=== PATIENT | male | born 1940 | race African-American/Black ===

== ENCOUNTER 2017-04-19 11:13 | Emergency (ER) | payer MEDICARE ==
[2017-04-19 11:47] LABS: #Basophils 0.1 thou/uL (0.0-0.2); #Eosinphils 0.2 thou/uL (0.0-0.7); #Lymphocytes 2.1 thou/uL (1.20-3.40); #Monocytes 0.4 thou/uL (0.11-0.59); #Neutrophils 2.8 thou/uL (1.40-6.50); %Eosinophils 3.5 % (0.0-10.0); %Lymphocytes 37.7 % (21.0-51.0); %Monocytes 7.8 % (0.0-10.0); Hemoglobin 13.3 g/dL (14.0-18.0); Mean Corpuscular HGB CONC 34.1 g/dL (32.0-36.0); Mean Corpuscular Hemoglobin 28.3 pg (27.0-31.0); Mean Corpuscular Volume 83.1 fl (80.0-94.0); Mean Platelet Volume 6.2 fL (7.4-10.4); Platelet Count 428 thou/uL (130-400); RBC Distribution Width 15.3 % (11.5-14.5); Red Blood Cell (RBC) Count 4.68 mill/uL (4.70-6.10); White Blood Cell (WBC) Count 5.6 thou/uL (4.8-10.8)
[2017-04-19 12:01] LABS: ALT (SGPT) 8 U/L (8-55); AST (SGOT) 13 U/L (5-34); Albumin 3.9 g/dL (3.4-4.8); Alkaline Phosphatase 61 U/L (40-150); Anion Gap 14 mmol/L (10-20); BUN (Urea Nitrogen) 21 mg/dL (8.4-25.7); Bilirubin, Total 0.3 mg/dL (0.2-1.2); Calc. Creatinine Clearance 0 mL/min (70-130); Calcium 8.7 mg/dL (7.8-10.44); Carbon Dioxide 17 mmol/L (23-31); Chloride 108 mmol/L (98-107); Estimated GFR-MDRD 71; Globulin 3.9 g/dL (2.4-3.5); Glucose 148 mg/dL (83-110); Potassium 4.1 mmol/L (3.5-5.1); Protein, Total 7.8 g/dL (5.8-8.1); Sodium 135 mmol/L (136-145)
[2017-04-19] MEDS ORDERED: Succinylcholine Chloride 20 MG/ML 10 ml SYRINGE FS ONE (13:18)
[2017-04-19] MEDS ORDERED: Lorazepam 2 MG/ML VIAL ONE (13:25)
== END 2017-04-19 16:05 | disposition home or self-care (01) ==
LOC: ERS 11:13
DX: G40.909 Epilepsy, unspecified, not intractable, without status epilepticus (principal); E86.0 Dehydration; Z86.73 Personal history of transient ischemic attack (TIA), and cerebral infarction without residual deficits; E78.5 Hyperlipidemia, unspecified; I10 Essential (primary) hypertension; F31.9 Bipolar disorder, unspecified; Z79.82 Long term (current) use of aspirin; Z79.899 Other long term (current) drug therapy
CPT/HCPCS: 36415; 80053; 85025; 94760; 96361; 96374; J2060

== ENCOUNTER 2018-10-23 13:08 | Emergency (ER) | payer MEDICARE ==
[2018-10-23] MEDS ORDERED: Meclizine HCl 25 MG TAB ONE (13:47)
[2018-10-23 13:59] LABS: #Eosinphils 0.1 thou/uL (0.0-0.7); #Lymphocytes 2.2 thou/uL (1.20-3.40); #Monocytes 0.5 thou/uL (0.11-0.59); #Neutrophils 5.5 thou/uL (1.40-6.50); %Basophils 0.5 % (0.0-1.0); %Eosinophils 1.6 % (0.0-10.0); %Lymphocytes 25.8 % (21.0-51.0); %Monocytes 6.4 % (0.0-10.0); %Neutrophils 65.7 % (42.0-75.0); Hemoglobin 11.5 g/dL (14.0-18.0); Mean Corpuscular HGB CONC 34.3 g/dL (32.0-36.0); Mean Corpuscular Hemoglobin 27.7 pg (27.0-31.0); Mean Corpuscular Volume 80.5 fL (78.0-98.0); Platelet Count 424 thou/uL (130-400); RBC Distribution Width 14.9 % (11.5-14.5); Red Blood Cell (RBC) Count 4.16 mill/uL (4.70-6.10); White Blood Cell (WBC) Count 8.4 thou/uL (4.8-10.8)
--- NOTE | 2018-10-23 14:05 | CT ---
CT BRAIN WITHOUT CONTRAST: HISTORY:Weakness and dizziness COMPARISON:01/26/2016 FINDINGS: There are foci of decreased attenuation in the periventricular white matter, consistent with chronic small vessel ischemic disease. Changes of cortical atrophy are stable No evidence of acute infarct, hemorrhage, midline shift or abnormal extra-axial fluid collections is seen. The ventricular size is appropriate and the basilar cisterns are patent. The bony calvarium is intact. IMPRESSION: No CT evidence of acute intracranial process.
[2018-10-23 14:21] LABS: ALT (SGPT) Less than 7 U/L (8-55); AST (SGOT) 13 U/L (5-34); Albumin 3.7 g/dL (3.4-4.8); Alkaline Phosphatase 77 U/L (40-150); Anion Gap 11 mmol/L (10-20); BUN (Urea Nitrogen) 15 mg/dL (8.4-25.7); Bilirubin, Total 0.4 mg/dL (0.2-1.2); Calc. Creatinine Clearance 0 mL/min (70-130); Calcium 8.7 mg/dL (7.8-10.44); Carbon Dioxide 26 mmol/L (23-31); Chloride 103 mmol/L (98-107); Estimated GFR-MDRD 74; Globulin 3.7 g/dL (2.4-3.5); Glucose 131 mg/dL (83-110); Potassium 3.8 mmol/L (3.5-5.1); Protein, Total 7.4 g/dL (5.8-8.1); Sodium 136 mmol/L (136-145)
--- NOTE | 2018-10-27 12:31 | EKG ---
Test Reason : DIZZINESS Blood Pressure : / mmHG Vent. Rate : 143 BPM Atrial Rate : 143 BPM P-R Int : 000 ms QRS Dur : 054 ms QT Int : 324 ms P-R-T Axes : 000 124 119 degrees QTc Int : 500 ms Sinus rhythm Baseline Artifact Present limits further interpretation Ventricular rate corrected to 99 beats/min Confirmed by SWATI BURTON DO ([id number]), dictionary editor CLAUDETTE HAMM ([id number]) on 10/27/2018 12:30:50 PM Referred By: JOSEPHINE Confirmed By:SWATI BURTON DO
== END 2018-10-23 15:40 | disposition home or self-care (01) ==
LOC: ERS 13:08
DX: R42 Dizziness and giddiness (principal); E78.5 Hyperlipidemia, unspecified; I10 Essential (primary) hypertension; F31.9 Bipolar disorder, unspecified; Z79.899 Other long term (current) drug therapy; Z79.82 Long term (current) use of aspirin
CPT/HCPCS: 36415; 70450; 80053; 84484; 85025; 93005; J8597

== ENCOUNTER 2021-07-20 07:30 | Emergency (ER) | payer MEDICARE ==
[2021-07-20] MEDS ORDERED: Boostrix 0.5 ML (Tdap) VIAL ONE (08:35)
== END 2021-07-20 11:18 | disposition home or self-care (01) ==
LOC: ERS 07:30
DX: S01.111A Laceration without foreign body of right eyelid and periocular area, initial encounter (principal); W05.0XXA Fall from non-moving wheelchair, initial encounter; Z23 Encounter for immunization; E78.5 Hyperlipidemia, unspecified; E78.00 Pure hypercholesterolemia, unspecified; I10 Essential (primary) hypertension; Z86.73 Personal history of transient ischemic attack (TIA), and cerebral infarction without residual deficits; Z79.82 Long term (current) use of aspirin; Z79.899 Other long term (current) drug therapy
CPT/HCPCS: 70450; 70486; 72125; 90471; 90715

== ENCOUNTER 2021-10-26 12:35 | Emergency (ER) | payer MEDICARE, OTHER ==
[2021-10-26 13:24] LABS: #Eosinphils 0.3 thou/uL (0.0-0.7); #Monocytes 0.5 thou/uL (0.11-0.59); #Neutrophils 6.1 thou/uL (1.40-6.50); %Basophils 0.2 % (0.0-1.0); %Lymphocytes 22.5 % (21.0-51.0); %Monocytes 5.7 % (0.0-10.0); %Neutrophils 68.7 % (42.0-75.0); Hemoglobin 9.3 g/dL (14.0-18.0); Mean Corpuscular HGB CONC 32.9 g/dL (32.0-36.0); Mean Corpuscular Hemoglobin 23.8 pg (27.0-31.0); Mean Corpuscular Volume 72.4 fL (78.0-98.0); Mean Platelet Volume 10.6 fL (7.4-10.4); Platelet Count 363 thou/uL (130-400); RBC Distribution Width 20.4 % (11.5-14.5); Red Blood Cell (RBC) Count 3.91 mill/uL (4.70-6.10); White Blood Cell (WBC) Count 8.9 thou/uL (4.8-10.8)
[2021-10-26 13:42] LABS: Anisocytosis SLIGHT = 6-15 cells (100X) (0-5/hpf); Hypochromia SLIGHT = 6-15 cells (100X) (0-5/hpf); MDiff Complete? YES; Microcytosis SLIGHT = 6-15 cells (100X) (0-5/hpf); Platelet Morphology Comment Appears Adequate; Polychromasia SLIGHT = 2-3 cells (100X) (0-2/hpf); Schistocytes SLIGHT = 2-5 cells (100X) (0-1/hpf); Target Cells SLIGHT = 2-5 cells (100X) (0-1/hpf)
[2021-10-26 13:51] LABS: ALT (SGPT) 9 U/L (8-55); AST (SGOT) 10 U/L (5-34); Albumin 3.5 g/dL (3.4-4.8); Alkaline Phosphatase 72 U/L (40-110); Anion Gap 15 mmol/L (10-20); BUN (Urea Nitrogen) 35 mg/dL (8.4-25.7); Bilirubin, Total 0.3 mg/dL (0.2-1.2); Calc. Creatinine Clearance 0 mL/min (70-130); Calcium 8.1 mg/dL (7.8-10.44); Carbon Dioxide 18 mmol/L (23-31); Chloride 108 mmol/L (98-107); Estimated GFR 46; Globulin 3.5 g/dL (2.4-3.5); Glucose 126 mg/dL (83-110); Potassium 4.5 mmol/L (3.5-5.1); Sodium 136 mmol/L (136-145)
[2021-10-26 14:01] LABS: Bacteria/HPF None Seen HPF (None Seen); Bilirubin Negative (Negative); Blood, Urine Negative (Negative); Clarity Clear (Clear); Glucose, Urine (Dipstick) Normal (Negative); Ketone, Urine Negative (Negative); Leukocyte Negative Leu/uL (Negative); Nitrite Negative (Negative); Protein, Urine (Dipstick) 30 mg/dL (Neg-Trace); RBC/HPF 0-3 HPF (0-3); Specific Gravity, Urine 1.011 (1.002-1.036); Squamous Epithelial 0-3 HPF (0-3); Urobilinogen Normal mg/dL (Less than 2); WBC/HPF 0-3 HPF (0-3); pH, Urine 6.5 (5.0-9.0)
== END 2021-10-26 18:14 ==
LOC: ERS 12:35
DX: E86.0 Dehydration (principal); I10 Essential (primary) hypertension; Z79.899 Other long term (current) drug therapy
CPT/HCPCS: 36415; 71045; 80053; 81003; 81015; 82550; 83605; 84484; 85025; 87040; 87077; 87149; 87186; 93005; 96360

== ENCOUNTER 2022-02-24 02:27 | Inpatient (IN) | payer MEDICARE, MEDICAID ==
[2022-02-24] MEDS ORDERED: Cefepime 2 GM VIAL ONE (03:28)
[2022-02-24 03:44] LABS: ALT (SGPT) Less than 7 U/L (8-55); AST (SGOT) 10 U/L (5-34); Alkaline Phosphatase 87 U/L (40-110); Anion Gap 15 mmol/L (10-20); BUN (Urea Nitrogen) 40 mg/dL (8.4-25.7); Bilirubin, Total 0.6 mg/dL (0.2-1.2); Calc. Creatinine Clearance 0 mL/min (70-130); Calcium 7.9 mg/dL (7.8-10.44); Carbon Dioxide 17 mmol/L (23-31); Chloride 106 mmol/L (98-107); Estimated GFR 36; Glucose 148 mg/dL (83-110); Potassium 3.9 mmol/L (3.5-5.1); Sodium 134 mmol/L (136-145)
[2022-02-24 03:56] LABS: SARS-CoV-2 NAA Rapid Test Not Detected (NotDetected)
[2022-02-24 04:33] LABS: Hemoglobin 7.8 g/dL (14.0-18.0); Mean Corpuscular HGB CONC 33.8 g/dL (32.0-36.0); Mean Corpuscular Hemoglobin 23.5 pg (27.0-31.0); Mean Corpuscular Volume 69.5 fl (78.0-98.0); Red Blood Cell (RBC) Count 3.31 mill/uL (4.70-6.10); White Blood Cell (WBC) Count 22.6 10x3/uL (4.8-10.8)
[2022-02-24 04:35] LABS: Anisocytosis SLIGHT = 6-15 cells (100X) (0-5/hpf); Band 9 % (5-11); Lymphocytes 3 % (21-51); MDiff Complete? YES; Monocytes 3 % (0-10); Neutrophil 85 % (42-75); Platelet Count 380 10x3/uL (130-400); Platelet Morphology Comment Appears Adequate; Target Cells SLIGHT = 2-5 cells (100X) (0-1/hpf)
[2022-02-24] MEDS ORDERED: Acetaminophen 325 MG TAB PO PRN (07:36)
[2022-02-24 07:44] LABS: Bilirubin Negative (Negative); Blood, Urine Negative (Negative); Clarity Clear (Clear); Glucose, Urine (Dipstick) Normal (Negative); Ketone, Urine Negative (Negative); Leukocyte Negative Leu/uL (Negative); Nitrite Negative (Negative); Protein, Urine (Dipstick) 70 mg/dL (Neg-Trace); RBC/HPF None Seen HPF (0-3); Specific Gravity, Urine 1.016 (1.002-1.036); Squamous Epithelial 0-3 HPF (0-3); Urobilinogen Normal mg/dL (Less than 2); WBC/HPF 0-3 HPF (0-3)
[2022-02-24] MEDS ORDERED: Piperacillin/Tazobactam 3.375 GM in Sodium Chloride 0.9% 100 ML IVPB SCH ×2 (07:45→09:00)
[2022-02-24] MEDS ORDERED: Sodium Chloride 0.9% 1,000 ML IV SCH (07:45)
[2022-02-24 07:46] LABS: Bacteria/HPF 1+ HPF (None Seen)
[2022-02-24] MEDS ORDERED: Vancomycin 1 GM in Premix Bag 1 BAG IVPB SCH (08:00)
[2022-02-24] MEDS ORDERED: Communication Order-Pharmacy FS ONE (08:06)
[2022-02-24] MEDS ORDERED: Aspirin Chewable 81 MG TAB ONE (08:19)
[2022-02-24] MEDS ORDERED: Vancomycin 1 GM/200 ML (FROZEN) BAG ONE (08:19)
[2022-02-24] MEDS: Aspirin 81 mg Enteric Coated Tablet PO SCH (08:30)
[2022-02-24] MEDS: Allopurinol 100 MG TAB PO SCH (08:31)
[2022-02-24] MEDS: Amlodipine 10 MG TAB PO SCH (08:31)
[2022-02-24] MEDS: Tamsulosin HCl 0.4 MG CAP PO SCH (08:32)
[2022-02-24 08:45] LABS: Iron 10 ug/dL (65-175); Iron Binding Capacity, Total 153 mcg/dL (261-462)
[2022-02-24] MEDS ORDERED: levETIRAcetam 500 MG TAB PO SCH (09:00)
[2022-02-24] MEDS ORDERED: Famotidine 20 MG TAB PO SCH (09:00)
[2022-02-24] MEDS ORDERED: Piperacillin/Tazobactam 3.375 GM VIAL ONE (11:03)
[2022-02-24] MEDS ORDERED: levETIRAcetam 500 MG/5 ML VIAL ONE (11:45)
[2022-02-24] MEDS ORDERED: levETIRAcetam in NS 250 MG in Premix Bag 1 BAG IVPB SCH (12:00)
[2022-02-24] MEDS ORDERED: Albumin 25% 25 GM/100 ML BOT IVPB SCH (12:15)
[2022-02-24] MEDS ORDERED: levETIRAcetam 500 MG/5 ML VIAL SLOW IVP SCH (12:15)
[2022-02-24] MEDS: Sodium Chloride 0.9% 1,000 ML IV SCH ×2 (12:36→17:55)
[2022-02-24] MEDS ORDERED: Scopolamine 1.5 mg/72 hour Patch TD SCH (13:00)
[2022-02-24] MEDS ORDERED: NOREPINEPHRINE 8 MG/250 ML-D5W 250 ML IVPB SCH (13:00)
[2022-02-24] MEDS ORDERED: Glycopyrrolate 0.2 MG/ML 5 ML SYRINGE SLOW IVP SCH (13:00)
[2022-02-24] MEDS ORDERED: NOREPINEPHRINE 8 MG/250 ML-D5W 250 ML ONE (13:47)
[2022-02-24] MEDS: Piperacillin/Tazobactam 3.375 GM in Sodium Chloride 0.9% 100 ML IVPB SCH (17:33)
[2022-02-24] MEDS: Scopolamine 1.5 mg/72 hour Patch TD SCH (17:55)
[2022-02-24 19:17] VITALS: BMI 24.3
[2022-02-24] MEDS: Famotidine 20 MG TAB PO SCH (21:32)
[2022-02-24] MEDS: Atorvastatin Calcium 10 MG TAB PO SCH (21:33)
[2022-02-24] MEDS: levETIRAcetam 500 MG/5 ML VIAL SLOW IVP SCH (21:34)
[2022-02-25] MEDS: Piperacillin/Tazobactam 3.375 GM in Sodium Chloride 0.9% 100 ML IVPB SCH ×3 (02:01→17:48)
[2022-02-25 04:50] LABS: Anion Gap 12 mmol/L (10-20); BUN (Urea Nitrogen) 32 mg/dL (8.4-25.7); Calc. Creatinine Clearance 34 mL/min (70-130); Calcium 7.7 mg/dL (7.8-10.44); Carbon Dioxide 15 mmol/L (23-31); Chloride 115 mmol/L (98-107); Estimated GFR 40; Glucose 105 mg/dL (83-110); Potassium 4.2 mmol/L (3.5-5.1); Sodium 138 mmol/L (136-145)
[2022-02-25 05:10] LABS: Hemoglobin 6.4 g/dL (14.0-18.0); Mean Corpuscular HGB CONC 32.8 g/dL (32.0-36.0); Mean Corpuscular Hemoglobin 23.3 pg (27.0-31.0); Mean Platelet Volume 10.3 fL (7.4-10.4); Platelet Count 294 10x3/uL (130-400); RBC Distribution Width 20.7 % (11.5-14.5); Red Blood Cell (RBC) Count 2.76 mill/uL (4.70-6.10); White Blood Cell (WBC) Count 39.3 10x3/uL (4.8-10.8)
[2022-02-25 05:17] LABS: Anisocytosis MODERATE=16-30 cells (100X) (0-5/hpf); Band 9 % (5-11); Burr Cells SLIGHT = 2-5 cells (100X) (0-1/hpf); Lymphocytes 3 % (21-51); MDiff Complete? YES; Microcytosis SLIGHT = 6-15 cells (100X) (0-5/hpf); Monocytes 4 % (0-10); Neutrophil 84 % (42-75); Platelet Morphology Comment Appears Adequate; Target Cells SLIGHT = 2-5 cells (100X) (0-1/hpf)
[2022-02-25] MEDS: Sodium Chloride 0.9% 1,000 ML IV SCH ×3 (06:43→23:34)
[2022-02-25] MEDS: Allopurinol 100 MG TAB PO SCH (11:01)
[2022-02-25] MEDS: Tamsulosin HCl 0.4 MG CAP PO SCH (11:01)
[2022-02-25] MEDS: levETIRAcetam 500 MG/5 ML VIAL SLOW IVP SCH ×2 (11:02→21:31)
[2022-02-25] MEDS: Amlodipine 10 MG TAB PO SCH (11:02)
[2022-02-25] MEDS: Aspirin 81 mg Enteric Coated Tablet PO SCH (11:02)
[2022-02-25] MEDS: Ipratropium/Albuterol 3 ML NEB NEB PRN (18:11)
[2022-02-25] MEDS: Acetylcysteine 20% 200 MG/ML 30 ML VIAL INH SCH (18:14)
[2022-02-25] MEDS: Acetaminophen 325 MG TAB PO PRN (19:40)
[2022-02-25] MEDS: Famotidine 20 MG TAB PO SCH (21:29)
[2022-02-25] MEDS: Atorvastatin Calcium 10 MG TAB PO SCH (21:31)
[2022-02-26] MEDS: Piperacillin/Tazobactam 3.375 GM in Sodium Chloride 0.9% 100 ML IVPB SCH ×3 (00:02→16:35)
[2022-02-26 06:38] LABS: Hemoglobin 7.8 g/dL (14.0-18.0); Mean Corpuscular HGB CONC 33.9 g/dL (32.0-36.0); Mean Corpuscular Hemoglobin 24.5 pg (27.0-31.0); Mean Corpuscular Volume 72.2 fl (78.0-98.0); Platelet Count 333 10x3/uL (130-400); RBC Distribution Width 20.8 % (11.5-14.5); White Blood Cell (WBC) Count 31.3 10x3/uL (4.8-10.8)
[2022-02-26 06:53] LABS: Anion Gap 12 mmol/L (10-20); BUN (Urea Nitrogen) 30 mg/dL (8.4-25.7); Calc. Creatinine Clearance 37 mL/min (70-130); Calcium 7.5 mg/dL (7.8-10.44); Carbon Dioxide 15 mmol/L (23-31); Chloride 116 mmol/L (98-107); Estimated GFR 46; Glucose 106 mg/dL (83-110); Potassium 3.6 mmol/L (3.5-5.1); Sodium 139 mmol/L (136-145)
[2022-02-26] MEDS: Acetylcysteine 20% 200 MG/ML 30 ML VIAL INH SCH ×2 (07:23→18:48)
[2022-02-26] MEDS: Ipratropium/Albuterol 3 ML NEB NEB PRN ×2 (07:23→18:49)
[2022-02-26 07:27] LABS: Anisocytosis SLIGHT = 6-15 cells (100X) (0-5/hpf); Band 2 % (5-11); Burr Cells SLIGHT = 2-5 cells (100X) (0-1/hpf); Eosinophils 2 % (0-10); Hypochromia SLIGHT = 6-15 cells (100X) (0-5/hpf); Lymphocytes 4 % (21-51); MDiff Complete? YES; Microcytosis SLIGHT = 6-15 cells (100X) (0-5/hpf); Monocytes 6 % (0-10); Neutrophil 86 % (42-75); Platelet Morphology Comment Appears Adequate; Target Cells SLIGHT = 2-5 cells (100X) (0-1/hpf); Vacuoles SLIGHT
[2022-02-26] MEDS: Aspirin 81 mg Enteric Coated Tablet PO SCH (08:40)
[2022-02-26] MEDS: Tamsulosin HCl 0.4 MG CAP PO SCH (08:40)
[2022-02-26] MEDS: Allopurinol 100 MG TAB PO SCH (08:41)
[2022-02-26] MEDS: levETIRAcetam 500 MG/5 ML VIAL SLOW IVP SCH ×2 (08:41→19:18)
[2022-02-26] MEDS: Amlodipine 10 MG TAB PO SCH (08:46)
[2022-02-26] MEDS: Sodium Chloride 0.9% 1,000 ML IV SCH ×2 (08:46→20:55)
[2022-02-26] MEDS: Acetaminophen 325 MG TAB PO PRN ×2 (14:52→19:19)
[2022-02-26] MEDS: Famotidine 20 MG TAB PO SCH (19:18)
[2022-02-26] MEDS: Atorvastatin Calcium 10 MG TAB PO SCH (19:19)
[2022-02-27] MEDS: Piperacillin/Tazobactam 3.375 GM in Sodium Chloride 0.9% 100 ML IVPB SCH ×3 (01:43→17:46)
[2022-02-27] MEDS: Sodium Chloride 0.9% 1,000 ML IV SCH ×2 (04:33→18:16)
[2022-02-27] MEDS: Ipratropium/Albuterol 3 ML NEB NEB PRN ×2 (07:00→18:59)
[2022-02-27] MEDS: Acetylcysteine 20% 200 MG/ML 30 ML VIAL INH SCH ×2 (07:00→18:59)
[2022-02-27 07:36] LABS: Hemoglobin 8.3 g/dL (14.0-18.0); Mean Corpuscular HGB CONC 33.2 g/dL (32.0-36.0); Mean Corpuscular Hemoglobin 24.1 pg (27.0-31.0); Mean Corpuscular Volume 72.7 fl (78.0-98.0); RBC Distribution Width 21.4 % (11.5-14.5); Red Blood Cell (RBC) Count 3.45 mill/uL (4.70-6.10)
[2022-02-27 07:38] LABS: Anion Gap 14 mmol/L (10-20); BUN (Urea Nitrogen) 26 mg/dL (8.4-25.7); Calc. Creatinine Clearance 39 mL/min (70-130); Calcium 7.6 mg/dL (7.8-10.44); Carbon Dioxide 15 mmol/L (23-31); Chloride 114 mmol/L (98-107); Estimated GFR 48; Glucose 109 mg/dL (83-110); Sodium 139 mmol/L (136-145)
[2022-02-27 08:17] LABS: Anisocytosis SLIGHT = 6-15 cells (100X) (0-5/hpf); Burr Cells SLIGHT = 2-5 cells (100X) (0-1/hpf); Eosinophils 6 % (0-10); Hypochromia SLIGHT = 6-15 cells (100X) (0-5/hpf); Lymphocytes 17 % (21-51); MDiff Complete? YES; Monocytes 2 % (0-10); Neutrophil 75 % (42-75); Platelet Morphology Comment Appears Adequate; Schistocytes SLIGHT = 2-5 cells (100X) (0-1/hpf); Target Cells SLIGHT = 2-5 cells (100X) (0-1/hpf); Vacuoles SLIGHT; White Blood Cell (WBC) Count 18.6 10x3/uL (4.8-10.8)
[2022-02-27] MEDS: levETIRAcetam 500 MG/5 ML VIAL SLOW IVP SCH ×2 (08:42→19:50)
[2022-02-27] MEDS: Allopurinol 100 MG TAB PO SCH (08:43)
[2022-02-27] MEDS: Tamsulosin HCl 0.4 MG CAP PO SCH (08:43)
[2022-02-27] MEDS: Amlodipine 10 MG TAB PO SCH (08:43)
[2022-02-27] MEDS: Aspirin 81 mg Enteric Coated Tablet PO SCH (08:44)
[2022-02-27] MEDS ORDERED: Piperacillin/Tazobactam 3.375 GM VIAL ONE (17:02)
[2022-02-27] MEDS: Scopolamine 1.5 mg/72 hour Patch TD SCH (17:47)
[2022-02-27] MEDS: Famotidine 20 MG TAB PO SCH (19:49)
[2022-02-27] MEDS: Atorvastatin Calcium 10 MG TAB PO SCH (19:50)
[2022-02-28] MEDS: Piperacillin/Tazobactam 3.375 GM in Sodium Chloride 0.9% 100 ML IVPB SCH ×3 (00:57→17:14)
[2022-02-28] MEDS: Sodium Chloride 0.9% 1,000 ML IV SCH ×3 (05:09→21:53)
[2022-02-28] MEDS: Acetylcysteine 20% 200 MG/ML 30 ML VIAL INH SCH ×2 (06:44→23:53)
[2022-02-28] MEDS: Allopurinol 100 MG TAB PO SCH (08:28)
[2022-02-28] MEDS: Aspirin 81 mg Enteric Coated Tablet PO SCH (08:29)
[2022-02-28] MEDS: Tamsulosin HCl 0.4 MG CAP PO SCH (08:29)
[2022-02-28] MEDS: levETIRAcetam 500 MG/5 ML VIAL SLOW IVP SCH ×2 (08:29→21:57)
[2022-02-28] MEDS: Amlodipine 10 MG TAB PO SCH (08:29)
[2022-02-28] MEDS: Atorvastatin Calcium 10 MG TAB PO SCH (21:52)
[2022-02-28] MEDS: Famotidine 20 MG TAB PO SCH (21:52)
[2022-02-28] MEDS: Acetaminophen 325 MG TAB PO PRN (21:52)
[2022-03-01] MEDS: Piperacillin/Tazobactam 3.375 GM in Sodium Chloride 0.9% 100 ML IVPB SCH ×2 (00:54→08:44)
[2022-03-01] MEDS: Acetylcysteine 20% 200 MG/ML 30 ML VIAL INH SCH (06:25)
[2022-03-01] MEDS: Sodium Chloride 0.9% 1,000 ML IV SCH (06:26)
[2022-03-01 08:22] VITALS: BP 174/93; TEMP 98.6
[2022-03-01] MEDS: Tamsulosin HCl 0.4 MG CAP PO SCH (08:45)
[2022-03-01] MEDS: Amlodipine 10 MG TAB PO SCH (08:45)
[2022-03-01] MEDS: Aspirin 81 mg Enteric Coated Tablet PO SCH (08:45)
[2022-03-01] MEDS: Allopurinol 100 MG TAB PO SCH (08:45)
[2022-03-01] MEDS: levETIRAcetam 500 MG/5 ML VIAL SLOW IVP SCH (08:45)
[2022-03-01] MEDS ORDERED: Famotidine 20 MG TAB PO SCH (21:00)
== END 2022-03-01 14:30 | disposition home or self-care (01) | DRG 871 ==
LOC: ERS 02:27 → ERHOLD 06:14 → CCU 16:32 → T4-A 02-25 23:25
PROVIDERS: ADMIT Student in an Organized Health Care Education/Training Program; ATTEND Internal Medicine
PROC: 3E03329 Introduction of Other Anti-infective into Peripheral Vein, Percutaneous Approach (ICD-10-PCS; 2022-02-24)
PROC: 3E033XZ Introduction of Vasopressor into Peripheral Vein, Percutaneous Approach (ICD-10-PCS; 2022-02-24)
PROC: 30233J1 Transfusion of Nonautologous Serum Albumin into Peripheral Vein, Percutaneous Approach (ICD-10-PCS; 2022-02-24)
PROC: 30233N1 Transfusion of Nonautologous Red Blood Cells into Peripheral Vein, Percutaneous Approach (ICD-10-PCS; principal; 2022-02-25)
DX: A41.9 Sepsis, unspecified organism (principal); J69.0 Pneumonitis due to inhalation of food and vomit; R65.21 Severe sepsis with septic shock; J96.01 Acute respiratory failure with hypoxia; N17.9 Acute kidney failure, unspecified; I69.352 Hemiplegia and hemiparesis following cerebral infarction affecting left dominant side; Z66 Do not resuscitate; E78.00 Pure hypercholesterolemia, unspecified; F31.9 Bipolar disorder, unspecified; E86.0 Dehydration; I12.9 Hypertensive chronic kidney disease with stage 1 through stage 4 chronic kidney disease, or unspecified chronic kidney disease; M10.9 Gout, unspecified; G40.909 Epilepsy, unspecified, not intractable, without status epilepticus; Z20.822 Contact with and (suspected) exposure to COVID-19; N18.30 Chronic kidney disease, stage 3 unspecified; I69.391 Dysphagia following cerebral infarction; D63.1 Anemia in chronic kidney disease; Z79.82 Long term (current) use of aspirin; Z79.899 Other long term (current) drug therapy; Z98.890 Other specified postprocedural states; Z74.01 Bed confinement status
CPT/HCPCS: 36415; 36416; 36430; 71045; 80048; 80053; 80202; 81003; 81015; 83540; 83550; 83605; 84145; 85025; 86850; 86900; 86901; 87040; 87081; 87086; 87149; 93005; 94640; 96361; 96365; 96375; J0132; J0692; J1650; J1953; J1956; J2543; J3370-JW; J3372; J3490; J7050; J7620; P9016; P9047

== ENCOUNTER 2022-05-28 06:29 | Inpatient (IN) | payer MEDICARE, MEDICAID ==
[2022-05-28] MEDS ORDERED: Ondansetron PF 4 MG/2 ML Vial ONE (07:22)
[2022-05-28 07:23] LABS: Mean Corpuscular HGB CONC 34.6 g/dL (32.0-36.0); Mean Corpuscular Hemoglobin 24.5 pg (27.0-31.0); Mean Corpuscular Volume 70.8 fl (78.0-98.0); Mean Platelet Volume 10.9 fL (7.4-10.4); Platelet Count 395 10x3/uL (130-400); Red Blood Cell (RBC) Count 3.68 mill/uL (4.70-6.10); White Blood Cell (WBC) Count 19.4 10x3/uL (4.8-10.8)
[2022-05-28 07:42] LABS: ALT (SGPT) 8 U/L (8-55); AST (SGOT) 8 U/L (5-34); Albumin 3.7 g/dL (3.4-4.8); Alkaline Phosphatase 69 U/L (40-110); Anion Gap 17 mmol/L (10-20); BUN (Urea Nitrogen) 53 mg/dL (8.4-25.7); Bilirubin, Total 0.2 mg/dL (0.2-1.2); Calc. Creatinine Clearance 0 mL/min (70-130); Carbon Dioxide 18 mmol/L (23-31); Chloride 104 mmol/L (98-107); Estimated GFR 25; Globulin 3.8 g/dL (2.4-3.5); Glucose 122 mg/dL (83-110); Lipase 43 U/L (8-78); Potassium 4.1 mmol/L (3.5-5.1); Protein, Total 7.5 g/dL (5.8-8.1); Sodium 135 mmol/L (136-145)
[2022-05-28 07:56] LABS: Anisocytosis SLIGHT = 6-15 cells (100X) (0-5/hpf); Band 7 % (5-11); Hypochromia SLIGHT = 6-15 cells (100X) (0-5/hpf); Lymphocytes 5 % (21-51); MDiff Complete? YES; Microcytosis SLIGHT = 6-15 cells (100X) (0-5/hpf); Monocytes 5 % (0-10); Neutrophil 82 % (42-75); Platelet Morphology Comment Appears Adequate; Reactive Lymphocytes 1 % (0-10); Schistocytes SLIGHT = 2-5 cells (100X) (0-1/hpf); Stomatocytes SLIGHT = 2-5 cells (100X) (0-1/hpf); Target Cells SLIGHT = 2-5 cells (100X) (0-1/hpf)
[2022-05-28] MEDS ORDERED: Pantoprazole 40 MG VIAL ONE (08:04)
[2022-05-28] MEDS ORDERED: Morphine 4 MG/ML VIAL ONE (08:13)
[2022-05-28 08:34] LABS: Bacteria/HPF 4+ HPF (None Seen); Bilirubin Negative (Negative); Blood, Urine Negative (Negative); Clarity Turbid (Clear); Glucose, Urine (Dipstick) Normal (Negative); Ketone, Urine Negative (Negative); Leukocyte 500 Leu/uL (Negative); Nitrite Negative (Negative); Protein, Urine (Dipstick) Negative (Neg-Trace); RBC/HPF 0-3 HPF (0-3); Specific Gravity, Urine 1.012 (1.002-1.036); Squamous Epithelial 0-3 HPF (0-3); Urobilinogen Normal mg/dL (Less than 2); WBC/HPF Greater than 50 HPF (0-3); pH, Urine 6.5 (5.0-9.0)
[2022-05-28] MEDS ORDERED: Cefepime 2 GM VIAL ONE (08:53)
[2022-05-28] MEDS ORDERED: Vancomycin 1 GM/200 ML (FROZEN) BAG ONE (09:35)
[2022-05-28] MEDS ORDERED: Ondansetron PF 4 MG/2 ML Vial IVP PRN (10:25)
[2022-05-28] MEDS ORDERED: levETIRAcetam 500 MG/5 ML VIAL SLOW IVP SCH (11:00)
[2022-05-28] MEDS ORDERED: Bisacodyl 10 MG SUPP PR SCH (12:00)
[2022-05-28] MEDS ORDERED: Mineral Oil ENEMA PR SCH (14:00)
[2022-05-28] MEDS ORDERED: Fleet Saline Enema 133 ML BOT PR SCH (14:00)
[2022-05-28] MEDS ORDERED: Cefepime 2 GM in Sodium Chloride 0.9% 100 ML IVPB SCH (14:00)
[2022-05-28] MEDS ORDERED: Fleet Saline Enema 133 ML BOT FS SCH (14:00)
[2022-05-28] MEDS: Sodium Chloride 0.9% 1,000 ML IV SCH ×2 (14:46→19:49)
[2022-05-28] MEDS ORDERED: VANCOMYCIN IVPB PRN (15:01)
[2022-05-28] MEDS ORDERED: Vancomycin Dose by Levels Sliding Scale (Wt <71) FS SCH (15:15)
[2022-05-28] MEDS: Pantoprazole 80 MG, Admixture Fee 1 EACH in Sodium Chloride 0.9% 100 ML IVPB SCH (15:48)
[2022-05-28] MEDS: metroNIDAZOLE 500 MG in Premix Bag 1 BAG IVPB SCH ×2 (15:48→19:48)
[2022-05-28 15:56] LABS: Actual Bicarbonate (HCO3v) 21.5 mEq/L (22-28); Base Excess -3.4 mEq/L (-2.0 to +3.0); Calcium, Ionized (venous) 0.97 mmol/L (1.16-1.32); Chloride (VBG) 107 mmol/L (98-106); Hematocrit-VBG 25 % (42.0-52.0); Hemoglobin (Hb) 8.5 g/dL (12.6-17.4); Potassium (VBG) 4.86 mmol/L (3.70-5.30)
[2022-05-28] MEDS: Bisacodyl 10 MG SUPP PR SCH ×3 (16:07→21:46)
[2022-05-28 16:08] LABS: Hemoglobin 7.9 g/dL (14.0-18.0); Mean Corpuscular HGB CONC 35.8 g/dL (32.0-36.0); Mean Corpuscular Hemoglobin 25.5 pg (27.0-31.0); Mean Corpuscular Volume 71.2 fl (78.0-98.0); Platelet Count 377 10x3/uL (130-400); RBC Distribution Width 20.8 % (11.5-14.5); Red Blood Cell (RBC) Count 3.11 mill/uL (4.70-6.10); White Blood Cell (WBC) Count 35.6 10x3/uL (4.8-10.8)
[2022-05-28] MEDS: Fleet Saline Enema 133 ML BOT PR SCH ×2 (16:47→19:49)
[2022-05-28] MEDS ORDERED: Vancomycin HCl 1 GM in Sodium Chloride 0.9% 250 ML 300 ML IVPB SCH (21:00)
[2022-05-28] MEDS: levETIRAcetam 500 MG/5 ML VIAL SLOW IVP SCH (21:46)
[2022-05-29 00:35] LABS: SARS-CoV-2 NAA Rapid Test Not Detected (NotDetected)
[2022-05-29] MEDS: Fleet Saline Enema 133 ML BOT PR SCH ×6 (00:51→22:11)
[2022-05-29] MEDS: Pantoprazole 80 MG, Admixture Fee 1 EACH in Sodium Chloride 0.9% 100 ML IVPB SCH (01:51)
[2022-05-29] MEDS: Bisacodyl 10 MG SUPP PR SCH ×6 (03:31→23:21)
[2022-05-29] MEDS: metroNIDAZOLE 500 MG in Premix Bag 1 BAG IVPB SCH ×3 (03:50→21:06)
[2022-05-29 03:58] LABS: Hemoglobin 7.8 g/dL (14.0-18.0); Mean Corpuscular HGB CONC 37.2 g/dL (32.0-36.0); Mean Corpuscular Hemoglobin 26.7 pg (27.0-31.0); Mean Corpuscular Volume 71.8 fl (78.0-98.0); Mean Platelet Volume 11.1 fL (7.4-10.4); Platelet Count 286 10x3/uL (130-400); Red Blood Cell (RBC) Count 2.92 mill/uL (4.70-6.10); White Blood Cell (WBC) Count 26.5 10x3/uL (4.8-10.8)
[2022-05-29 04:01] LABS: Hemoglobin A1c 5.4 % (4.0-6.0)
[2022-05-29 04:18] LABS: ALT (SGPT) 7 U/L (8-55); AST (SGOT) 14 U/L (5-34); Albumin 3.2 g/dL (3.4-4.8); Alkaline Phosphatase 67 U/L (40-110); Anion Gap 18 mmol/L (10-20); BUN (Urea Nitrogen) 42 mg/dL (8.4-25.7); Bilirubin, Direct 0.2 mg/dL (0.1-0.3); Bilirubin, Total 0.3 mg/dL (0.2-1.2); Calc. Creatinine Clearance 26 mL/min (70-130); Calcium 7.4 mg/dL (7.8-10.44); Carbon Dioxide 15 mmol/L (23-31); Cardiac Risk 2.5 (Less than 4.5); Chloride 112 mmol/L (98-107); Cholesterol 81 mg/dl (< 200 Desired); Estimated GFR 33; Glucose 90 mg/dL (83-110); HDL Cholesterol 32 mg/dL (>60 Neg Risk); LDL Cholesterol, Calculated 44 mg/dL; Magnesium 1.8 mg/dL (1.6-2.6); Potassium 4.8 mmol/L (3.5-5.1); Protein, Total 6.7 g/dL (5.8-8.1); Sodium 140 mmol/L (136-145); Triglycerides 26 mg/dL (Less than 150)
[2022-05-29 04:47] LABS: Anisocytosis SLIGHT = 6-15 cells (100X) (0-5/hpf); Band 10 % (5-11); Lymphocytes 6 % (21-51); MDiff Complete? YES; Microcytosis SLIGHT = 6-15 cells (100X) (0-5/hpf); Monocytes 5 % (0-10); Neutrophil 78 % (42-75)
[2022-05-29] MEDS: Sodium Chloride 0.9% 1,000 ML IV SCH ×2 (06:40→17:11)
[2022-05-29] MEDS: levETIRAcetam 500 MG/5 ML VIAL SLOW IVP SCH ×2 (08:46→21:07)
[2022-05-29] MEDS: Cefepime 1 GM in Sodium Chloride 0.9% 100 ML IVPB SCH (08:47)
[2022-05-29] MEDS ORDERED: Vancomycin HCl 750 MG in Sodium Chloride 0.9% 250 ML 250 ML IVPB SCH (11:00)
[2022-05-30] MEDS: Fleet Saline Enema 133 ML BOT PR SCH ×5 (01:18→17:40)
[2022-05-30] MEDS: Sodium Chloride 0.9% 1,000 ML IV SCH ×3 (05:02→23:00)
[2022-05-30] MEDS: metroNIDAZOLE 500 MG in Premix Bag 1 BAG IVPB SCH ×3 (05:06→20:44)
[2022-05-30 05:19] LABS: #Eosinphils 0.3 thou/uL (0.0-0.7); #Lymphocytes 1.6 thou/uL (1.20-3.40); #Monocytes 0.7 thou/uL (0.11-0.59); #Neutrophils 15.1 thou/uL (1.40-6.50); %Basophils 0.1 % (0.0-1.0); %Eosinophils 1.6 % (0.0-10.0); %Lymphocytes 9.1 % (21.0-51.0); %Monocytes 3.7 % (0.0-10.0); %Neutrophils 85.5 % (42.0-75.0); Mean Corpuscular Hemoglobin 23.3 pg (27.0-31.0); Mean Corpuscular Volume 70.7 fl (78.0-98.0); Mean Platelet Volume 9.8 fL (7.4-10.4); Platelet Count 366 10x3/uL (130-400); RBC Distribution Width 21.2 % (11.5-14.5); Red Blood Cell (RBC) Count 3.43 mill/uL (4.70-6.10); White Blood Cell (WBC) Count 17.6 10x3/uL (4.8-10.8)
[2022-05-30 05:39] LABS: Anion Gap 16 mmol/L (10-20); BUN (Urea Nitrogen) 30 mg/dL (8.4-25.7); Calc. Creatinine Clearance 28 mL/min (70-130); Calcium 8.1 mg/dL (7.8-10.44); Carbon Dioxide 17 mmol/L (23-31); Chloride 114 mmol/L (98-107); Estimated GFR 38; Glucose 94 mg/dL (83-110); Magnesium 1.7 mg/dL (1.6-2.6); Potassium 4.1 mmol/L (3.5-5.1); Sodium 143 mmol/L (136-145)
[2022-05-30] MEDS: Bisacodyl 10 MG SUPP PR SCH ×5 (05:42→17:41)
[2022-05-30] MEDS: Cefepime 1 GM in Sodium Chloride 0.9% 100 ML IVPB SCH (09:07)
[2022-05-30] MEDS: levETIRAcetam 500 MG/5 ML VIAL SLOW IVP SCH ×2 (09:07→20:39)
[2022-05-30] MEDS: Pantoprazole 40 MG VIAL IVP SCH (09:07)
[2022-05-30] MEDS: Polyethylene Glycol 3350 17 GM Packet PO SCH (09:07)
[2022-05-30] MEDS ORDERED: Amlodipine 10 MG TAB PO SCH (09:45)
[2022-05-30 11:24] LABS: Vancomycin, Random 12.9 ug/mL (See Comment)
[2022-05-30 15:00] VITALS: BMI 21.7
[2022-05-30] MEDS ORDERED: Vancomycin HCl 500 MG in Sodium Chloride 0.9% 100 ML IV SCH (16:15)
[2022-05-30] MEDS: Atorvastatin Calcium 10 MG TAB PO SCH (20:39)
[2022-05-30] MEDS: Tamsulosin HCl 0.4 MG CAP PO SCH (20:40)
[2022-05-31] MEDS: metroNIDAZOLE 500 MG in Premix Bag 1 BAG IVPB SCH ×3 (04:49→20:36)
[2022-05-31 06:01] LABS: Anion Gap 15 mmol/L (10-20); BUN (Urea Nitrogen) 27 mg/dL (8.4-25.7); Calc. Creatinine Clearance 34 mL/min (70-130); Carbon Dioxide 16 mmol/L (23-31); Chloride 113 mmol/L (98-107); Estimated GFR 46; Glucose 108 mg/dL (83-110); Potassium 4.1 mmol/L (3.5-5.1); Sodium 140 mmol/L (136-145)
[2022-05-31 06:11] LABS: Hemoglobin 7.7 g/dL (14.0-18.0); Mean Corpuscular HGB CONC 33.3 g/dL (32.0-36.0); Mean Corpuscular Hemoglobin 23.8 pg (27.0-31.0); Mean Corpuscular Volume 71.6 fl (78.0-98.0); Mean Platelet Volume 10.5 fL (7.4-10.4); Platelet Count 362 10x3/uL (130-400); RBC Distribution Width 21.2 % (11.5-14.5); Red Blood Cell (RBC) Count 3.23 mill/uL (4.70-6.10)
[2022-05-31 06:48] LABS: #Eosinphils 0.4 thou/uL (0.0-0.7); #Lymphocytes 2.9 thou/uL (1.20-3.40); #Monocytes 0.7 thou/uL (0.11-0.59); %Lymphocytes 20.4 % (21.0-51.0); %Neutrophils 71.6 % (42.0-75.0); Anisocytosis SLIGHT = 6-15 cells (100X) (0-5/hpf); MDiff Complete? YES; Microcytosis SLIGHT = 6-15 cells (100X) (0-5/hpf)
[2022-05-31] MEDS: Cefepime 1 GM in Sodium Chloride 0.9% 100 ML IVPB SCH ×2 (08:26→20:36)
[2022-05-31] MEDS: levETIRAcetam 500 MG/5 ML VIAL SLOW IVP SCH ×2 (08:26→20:37)
[2022-05-31] MEDS: Ferrous Sulfate 325 MG TAB PO SCH ×2 (08:27→08:35)
[2022-05-31] MEDS: Pantoprazole 40 MG VIAL IVP SCH (08:27)
[2022-05-31] MEDS: Amlodipine 10 MG TAB PO SCH ×2 (08:27→08:36)
[2022-05-31] MEDS: Sodium Chloride 0.9% 1,000 ML IV SCH (08:27)
[2022-05-31] MEDS: Aspirin Chewable 81 MG TAB PO SCH ×2 (08:27→08:36)
[2022-05-31] MEDS: Polyethylene Glycol 3350 17 GM Packet PO SCH (08:28)
[2022-05-31 16:34] LABS: Vancomycin, Random 11.1 ug/mL (See Comment)
[2022-05-31] MEDS ORDERED: Labetalol HCl 100 MG/20 ML VIAL SLOW IVP PRN (17:02)
[2022-05-31] MEDS: Atorvastatin Calcium 10 MG TAB PO SCH (20:36)
[2022-05-31] MEDS: Tamsulosin HCl 0.4 MG CAP PO SCH (20:36)
[2022-06-01] MEDS: metroNIDAZOLE 500 MG in Premix Bag 1 BAG IVPB SCH ×3 (03:40→21:35)
[2022-06-01] MEDS: Cefepime 1 GM in Sodium Chloride 0.9% 100 ML IVPB SCH ×2 (10:50→21:35)
[2022-06-01] MEDS ORDERED: Ondansetron PF 4 MG/2 ML Vial ONE (10:54)
[2022-06-01] MEDS ORDERED: Lidocaine 1% PF 5 ML VIAL ONE (10:54)
[2022-06-01] MEDS ORDERED: PROPOFOL 200 MG/20 ML VIAL ONE (10:54)
[2022-06-01] MEDS: Amlodipine 10 MG TAB PO SCH (11:24)
[2022-06-01] MEDS: Aspirin Chewable 81 MG TAB PO SCH (11:24)
[2022-06-01] MEDS: Polyethylene Glycol 3350 17 GM Packet PO SCH (11:24)
[2022-06-01] MEDS: Ferrous Sulfate 325 MG TAB PO SCH (11:24)
[2022-06-01] MEDS: levETIRAcetam 500 MG/5 ML VIAL SLOW IVP SCH ×2 (12:13→21:37)
[2022-06-01] MEDS: Pantoprazole 40 MG VIAL IVP SCH (12:14)
[2022-06-01 13:33] LABS: #Eosinphils 0.6 thou/uL (0.0-0.7); #Lymphocytes 2.1 thou/uL (1.20-3.40); #Monocytes 0.5 thou/uL (0.11-0.59); %Basophils 0.1 % (0.0-1.0); %Eosinophils 6.5 % (0.0-10.0); %Lymphocytes 22.7 % (21.0-51.0); %Neutrophils 65.7 % (42.0-75.0); Hemoglobin 8.2 g/dL (14.0-18.0); Mean Corpuscular Hemoglobin 23.7 pg (27.0-31.0); Mean Corpuscular Volume 71.8 fl (78.0-98.0); Platelet Count 376 10x3/uL (130-400); RBC Distribution Width 21.4 % (11.5-14.5); Red Blood Cell (RBC) Count 3.45 mill/uL (4.70-6.10); White Blood Cell (WBC) Count 9.1 10x3/uL (4.8-10.8)
[2022-06-01 13:57] LABS: Anion Gap 12 mmol/L (10-20); BUN (Urea Nitrogen) 23 mg/dL (8.4-25.7); Calc. Creatinine Clearance 36 mL/min (70-130); Calcium 8.4 mg/dL (7.8-10.44); Carbon Dioxide 20 mmol/L (23-31); Chloride 110 mmol/L (98-107); Estimated GFR 50; Glucose 105 mg/dL (83-110); Potassium 3.9 mmol/L (3.5-5.1); Sodium 138 mmol/L (136-145)
[2022-06-01] MEDS: Oxybutynin 5 MG TAB PO SCH (21:35)
[2022-06-01] MEDS: levETIRAcetam 500 MG TAB PO SCH (21:35)
[2022-06-01] MEDS: Atorvastatin Calcium 10 MG TAB PO SCH (21:35)
[2022-06-01] MEDS: Artificial Tear Sol 15 ML BOT EA EYE SCH (21:36)
[2022-06-01] MEDS: Tamsulosin HCl 0.4 MG CAP PO SCH (21:39)
[2022-06-01 23:56] VITALS: TEMP 98.3
[2022-06-02] MEDS: metroNIDAZOLE 500 MG in Premix Bag 1 BAG IVPB SCH ×2 (03:22→12:19)
[2022-06-02] MEDS ORDERED: Allopurinol 100 MG TAB PO SCH (09:00)
[2022-06-02] MEDS: Ferrous Sulfate 325 MG TAB PO SCH (09:17)
[2022-06-02] MEDS: Oxybutynin 5 MG TAB PO SCH (09:18)
[2022-06-02] MEDS: levETIRAcetam 500 MG TAB PO SCH (09:19)
[2022-06-02] MEDS: levETIRAcetam 500 MG/5 ML VIAL SLOW IVP SCH (09:20)
[2022-06-02] MEDS: Amlodipine 10 MG TAB PO SCH (09:20)
[2022-06-02] MEDS: Cefepime 1 GM in Sodium Chloride 0.9% 100 ML IVPB SCH (09:23)
[2022-06-02] MEDS: Polyethylene Glycol 3350 17 GM Packet PO SCH (09:23)
[2022-06-02] MEDS: Aspirin Chewable 81 MG TAB PO SCH (09:23)
[2022-06-02] MEDS: Artificial Tear Sol 15 ML BOT EA EYE SCH ×2 (09:24→18:12)
[2022-06-02 11:10] LABS: Anion Gap 12 mmol/L (10-20); BUN (Urea Nitrogen) 21 mg/dL (8.4-25.7); Calc. Creatinine Clearance 37 mL/min (70-130); Calcium 8.1 mg/dL (7.8-10.44); Carbon Dioxide 21 mmol/L (23-31); Chloride 108 mmol/L (98-107); Estimated GFR 53; Glucose 116 mg/dL (83-110); Sodium 137 mmol/L (136-145)
[2022-06-02 12:03] LABS: #Eosinphils 0.7 thou/uL (0.0-0.7); #Lymphocytes 1.9 thou/uL (1.20-3.40); #Monocytes 0.5 thou/uL (0.11-0.59); #Neutrophils 4.7 thou/uL (1.40-6.50); %Basophils 0.3 % (0.0-1.0); %Eosinophils 8.9 % (0.0-10.0); %Lymphocytes 24.4 % (21.0-51.0); %Monocytes 6.7 % (0.0-10.0); %Neutrophils 59.7 % (42.0-75.0); Hemoglobin 7.8 g/dL (14.0-18.0); Hypochromia MODERATE=16-30 cells (100X) (0-5/hpf); MDiff Complete? YES; Mean Corpuscular HGB CONC 33.1 g/dL (32.0-36.0); Mean Corpuscular Hemoglobin 23.5 pg (27.0-31.0); Mean Corpuscular Volume 70.8 fl (78.0-98.0); Microcytosis MODERATE=15-30 cells (100X) (0-5/hpf); Platelet Count 337 10x3/uL (130-400); Platelet Morphology Comment Appears Adequate; Polychromasia SLIGHT = 2-3 cells (100X) (0-2/hpf); RBC Distribution Width 21.8 % (11.5-14.5); Red Blood Cell (RBC) Count 3.33 mill/uL (4.70-6.10); Reflex for Review?? YES; Schistocytes SLIGHT = 2-5 cells (100X) (0-1/hpf); Small Platelets MODERATE; White Blood Cell (WBC) Count 7.9 10x3/uL (4.8-10.8)
[2022-06-02 12:34] VITALS: BP 133/79
== END 2022-06-02 18:00 | DRG 871 ==
LOC: ERS 06:29 → SUATTDRO 06:29 → IMCU/EMU 09:41 → 2NO 05-30 14:31
PROVIDERS: ADMIT Hospitalist; ATTEND Hospitalist
PROC: 3E03329 Introduction of Other Anti-infective into Peripheral Vein, Percutaneous Approach (ICD-10-PCS; principal; 2022-05-28)
PROC: 0DJ08ZZ Inspection of Upper Intestinal Tract, Via Natural or Artificial Opening Endoscopic (ICD-10-PCS; 2022-06-01)
DX: A41.9 Sepsis, unspecified organism (principal); J69.0 Pneumonitis due to inhalation of food and vomit; K22.11 Ulcer of esophagus with bleeding; N39.0 Urinary tract infection, site not specified; N17.9 Acute kidney failure, unspecified; I69.354 Hemiplegia and hemiparesis following cerebral infarction affecting left non-dominant side; K86.2 Cyst of pancreas; Z20.822 Contact with and (suspected) exposure to COVID-19; K44.9 Diaphragmatic hernia without obstruction or gangrene; K29.60 Other gastritis without bleeding; D63.1 Anemia in chronic kidney disease; N18.9 Chronic kidney disease, unspecified; I12.9 Hypertensive chronic kidney disease with stage 1 through stage 4 chronic kidney disease, or unspecified chronic kidney disease; G40.909 Epilepsy, unspecified, not intractable, without status epilepticus; E78.5 Hyperlipidemia, unspecified; K56.41 Fecal impaction; R13.12 Dysphagia, oropharyngeal phase; B96.20 Unspecified Escherichia coli [E. coli] as the cause of diseases classified elsewhere; Z79.899 Other long term (current) drug therapy; Z79.82 Long term (current) use of aspirin
CPT/HCPCS: 36415; 71045; 74018; 74176; 74230; 80048; 80053; 80061; 80076; 80202; 81003; 81015; 82274; 82805; 83036; 83605; 83690; 83735; 84443; 84484; 85025; 85060; 87040; 87077; 87081; 87086; 87186; 93005; 96361; 96365; 96367; 96375; C9113; J0692; J1953; J1956; J2270; J2405; J2704; J3370; J3370-JW; J3490; J7050